=== PATIENT | female | born 1945 | race Caucasian/White ===

== ENCOUNTER → 2017-12-09 | Outpatient (CLI) | payer MEDICARE, OTHER ==
[~2017-12-09] MED LIST: ASPI81TA94 PO; CALCIUM 500+VI1 EACH PO; CHOL400C10 PO; FISH OIL1 CAP PO; MULT-820 PO
--- NOTE | 2017-12-10 15:47 | RADIOLOGY IMAGING REPORT ---
FACILITY: [facility] PATIENT NAME: KEN MENDIOLA : [id number] MR: [id number] V: [id number] EXAM DATE: [id number] ORDERING PHYSICIAN: VICKI SARAVIA TECHNOLOGIST: Pily Arciniega PROCEDURE:BILATERAL DIGITAL SCREENING MAMMOGRAM WITH CAD ASSISTED INTERPRETATION & 3D TOMOSYNTHESIS COMPARISON:None. INDICATIONS:PRIOR MAMMOGRAMS DATED 12/08/16, 11/27/15, 10/29/14, 10/12/14, 08/18/12, 08/11/12 FINDINGS: Moderately dense fibroglandular tissue is seen throughout the breasts. The parenchymal pattern has remained stable allowing for difference in mammographic technique & patient positioning. There is no evidence of malignant appearing mass, malignant appearing calcification or other secondary sign of malignancy in either breast. DIAGNOSTIC CATEGORY 1--NEGATIVE. RECOMMENDATIONS: ROUTINE MAMMOGRAM AND CLINICAL EVALUATION. IMPRESSION: BIRADS 1: Negative No significant abnormality is seen. Dictated by: Leni Belle M.D. on 12/09/2017 at 16:20 Transcribed by: DONG on 12/10/2017 at 9:04 Approved by: Leni Belle M.D. on 12/10/2017 at 15:46 [facility]
== END ==
LOC: MAMO 00:34
PROVIDERS: ATTEND Family Medicine
DX: Z12.31 Encounter for screening mammogram for malignant neoplasm of breast (principal)
CPT/HCPCS: 77063; 77067

== ENCOUNTER → 2018-02-08 | Outpatient (CLI) | payer MEDICARE, OTHER ==
--- NOTE | 2018-02-08 11:15 | RADIOLOGY IMAGING REPORT ---
FACILITY: [facility] PATIENT NAME: Veronika Naidu : 1945 MR: [id number] V: [id number] EXAM DATE: ORDERING PHYSICIAN: VICKI SARAVIA TECHNOLOGIST: Location: [facility] Patient: Veronika Naidu : 1945 Visit/Account:[id number] Date of Sevice: 02/08/2018 Right upper quadrant ultrasound HISTORY: Elevated LFTs COMPARISON: None. TECHNIQUE: Kelly scale, color and Duplex imaging of the right upper quadrant was performed. FINDINGS: Gallbladder: Unremarkable; no stones or sludge.. The gallbladder wall measures 2 mm. There was no so nographic Valencia sign. Common duct: Normal, 2 mm diameter. Liver: The liver measures 17 cm. There is diffuse diffuse increased echotexture of the liver likel y reflecting diffuse fatty infiltration. No focal liver lesions are seen. Main portal vein is paten t with hepatopedal flow. Pancreas: Partially obscured by bowel, visualized aspects unremarkable. Right Kidney: The right kidney length measures 9.5 cm. The right kidney is normal in size and echot exture. Upper abdominal aorta and IVC: Patent. Ascites: None visualized. IMPRESSION: 1. Fatty infiltration of the liver but otherwise unremarkable study. Report Dictated By: Kulwant Schmitz MD at 02/08/2018 11:09 AM Report E-Signed By: Kulwant Schmitz MD at 02/08/2018 11:12 AM WSN:[email or web address]
== END ==
LOC: US 00:33
PROVIDERS: ATTEND Family Medicine
DX: K76.0 Fatty (change of) liver, not elsewhere classified (principal)
CPT/HCPCS: 76705

== ENCOUNTER → 2018-10-07 | Outpatient (CLI) | payer MEDICARE, OTHER ==
--- NOTE | 2018-10-07 17:00 | RADIOLOGY IMAGING REPORT ---
FACILITY: PATIENT NAME: Veronika Naidu : 1945 MR: [id number] V: [id number] EXAM DATE: ORDERING PHYSICIAN: VICKI SARAVIA TECHNOLOGIST: Location: [facility] Patient: Veronika Naidu : 1945 Visit/Account:[id number] Date of Sevice: 10/07/2018 FINGER RIGHT 4TH DIGIT HISTORY: Right ring finger pain ADDITIONAL HISTORY: None. COMPARISON: None. FINDINGS: 3 views were obtained of the right fourth digit. There is no evidence of acute or subacute fracture. There is mild narrowing of the DIP joint with tiny marginal osteophytes. PIP and MCP joint spaces are well-maintained. There are no erosions. No lytic or sclerotic bony lesions. Bones are osteopen ic. Soft tissues are unremarkable. No significant swelling or radiopaque foreign body. IMPRESSION: 1. No evidence of acute or subacute fracture or subluxation. 2. 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 3. Unremarkable soft tissues. Report Dictated By: Kimberlee Benitez MD at 10/07/2018 4:54 PM Report E-Signed By: Kimberlee Benitez MD at 10/07/2018 4:56 PM WSN:[email or web address]
== END ==
LOC: RAD 15:56
PROVIDERS: ATTEND Family Medicine
DX: M79.644 Pain in right finger(s) (principal)